=== PATIENT | male | born 1980 | race Native Hawaiian/Other Pacific Islander ===

== ENCOUNTER 2021-11-25 17:24 | Emergency (ER) | payer OTHER ==
[~2021-11-25] VITALS: Ht 172.7 cm; Wt 73.0 kg
[2021-11-25 17:50] LABS: PLATELET COUNT 93 K/uL (142-355)
[2021-11-25 18:01] LABS: POTASSIUM 3.8 mmol/L (3.6-5.2)
[2021-11-25 20:06] VITALS: BP 128/68; TEMP 98.2
[2021-11-25] MEDS ORDERED: AMIODARONE HYD200 MG PO (21:55)
[2021-11-25] MEDS ORDERED: LIPITOR10 MG PO (21:55)
[2021-11-25] MEDS ORDERED: OLANZAPINE5 M1 PO (21:56)
[2021-11-25] MEDS ORDERED: CITALOPRAM10 M1 PO (21:56)
[2021-11-25] MEDS ORDERED: DIVALPROEX500 M1 PO (21:57)
[2021-11-25] MEDS ORDERED: ELIQUIS5 MG PO (21:57)
[2021-11-25] MEDS ORDERED: TYLENOL325 MG PO (21:58)
[2021-11-25] MEDS ORDERED: DOK100 MG PO (21:58)
== END 2021-11-25 20:06 | disposition still patient (30) ==
LOC: ED 17:24
PROVIDERS: Emergency Medicine
DX: F25.8 Other schizoaffective disorders (principal); R45.1 Restlessness and agitation; R94.31 Abnormal electrocardiogram [ECG] [EKG]; Z11.52 Encounter for screening for COVID-19; Z04.6 Encounter for general psychiatric examination, requested by authority
CPT/HCPCS: 80053; 85027; 87635; 93005; 99283; U0003